=== PATIENT | female | born 1970 | race Caucasian/White ===

== ENCOUNTER 2018-10-09 07:45 | Day surgery (SDC) | payer OTHER ==
[~2018-10-09] VITALS: Ht 154.9 cm; Wt 76.1 kg
[~2018-10-09 07:45] MED LIST: ALBU8.5H5 INH; CALC200T3 PO; DOCU100T3 PO; HYDROCHLOROTH12.5 MG PO; LEVO137T2 PO; LEVO50TA5 PO; OXYC5TAB3 PO
[2018-10-09] MEDS ORDERED: LACTATED RINGERS 1,000 ML IV SCH (08:04)
[2018-10-09] MEDS ORDERED: LEVO100T5 PO (08:16)
[2018-10-09] MEDS ORDERED: CHLOROTHALIDONE PO (08:16)
[2018-10-09] MEDS ORDERED: METF500T17 PO (08:16)
[2018-10-09] MEDS ORDERED: MAGN400T36 PO (08:16)
[2018-10-09] MEDS ORDERED: VERA120T5 PO (08:16)
[2018-10-09] MEDS ORDERED: VITAMIN D3 PO (08:16)
[2018-10-09] MEDS ORDERED: ACETAMINOPHEN 500 MG TABLET PO ONE (08:30)
[2018-10-09] MEDS ORDERED: PLEASE ENTER HEIGHT AND WEIGHT MC SCH (08:30)
[2018-10-09] MEDS ORDERED: GABAPENTIN 300 MG CAPSULE PO ONE (08:30)
[2018-10-09 08:42] VITALS: BP 118/80
[2018-10-09] MEDS ORDERED: PROCHLORPERAZINE 5 MG/ML, 2ML IV PRN (09:00)
[2018-10-09] MEDS ORDERED: DIPHENHYDRAMINE 50 MG/ML, 1ML IVPush PRN (09:00)
[2018-10-09] MEDS ORDERED: MEPERIDINE/PF 25MG/0.5ML IVPush PRN (09:00)
[2018-10-09] MEDS ORDERED: OXYcodone 5 MG/5 ML ORAL.SOL UDC PO PRN (09:00)
[2018-10-09] MEDS ORDERED: HALOPERIDOL 5 MG/ML IV PRN (09:00)
[2018-10-09] MEDS ORDERED: hydrALAzine 20 MG/ML, 1ML IV PRN (09:00)
[2018-10-09] MEDS ORDERED: LABETALOL 5MG/ML, 20ML IV PRN (09:00)
[2018-10-09] MEDS ORDERED: HYDROmorphone 2 MG/ML, 1ML IVPush PRN (09:00)
[2018-10-09] MEDS ORDERED: FENTANYL PF 100 MCG/2ML IV PRN (09:00)
[2018-10-09] MEDS ORDERED: ALBUTEROL SULFATE 2.5 MG/3 ML NPPB PRN (09:00)
[2018-10-09] MEDS ORDERED: METOPROLOL 1 MG/ML, 5ML IV PRN (09:00)
[2018-10-09] MEDS ORDERED: PROMETHAZINE 25 MG/ML, 1ML IV PRN (09:00)
[2018-10-09] MEDS ORDERED: MIDAZOLAM 1 MG/ML, 2ML ONE (09:07)
[2018-10-09] MEDS ORDERED: FENTANYL PF 250 MCG/5ML ONE (09:08)
[2018-10-09 09:11] LABS: ALANINE AMINOTRANSFERASE 63 U/L (12-78); ALBUMIN 4.3 g/dL (3.4-5.0); ANION GAP 8 mmol/L (5-15); CALCIUM 9.2 mg/dL (8.5-10.1); CHLORIDE 98 mmol/L (98-107); CREATININE 0.81 mg/dL (0.55-1.02)
[2018-10-09 09:14] LABS: ALKALINE PHOSPHATASE 73 U/L (45-117); BILIRUBIN,TOTAL 0.9 mg/dL (0.2-1.0); TOTAL PROTEIN 8.5 g/dL (6.4-8.2)
[2018-10-10] MEDS ORDERED: CARV6.2512 PO (11:09)
[2018-10-17] MEDS ORDERED: CARV6.252 PO (15:27)
[2018-10-17] MEDS ORDERED: CHOL2000 PO (16:08)
[2018-10-17] MEDS ORDERED: MAGN400C PO (16:08)
== END 2018-10-09 10:18 | disposition home or self-care (01) ==
LOC: OUT 07:45
PROVIDERS: ATTEND Obstetrics & Gynecology Gynecology
DX: N83.201 Unspecified ovarian cyst, right side (principal); Z53.8 Procedure and treatment not carried out for other reasons; E89.0 Postprocedural hypothyroidism; J45.909 Unspecified asthma, uncomplicated; F32.9 Major depressive disorder, single episode, unspecified; I10 Essential (primary) hypertension; E78.00 Pure hypercholesterolemia, unspecified; Z79.890 Hormone replacement therapy; Z79.84 Long term (current) use of oral hypoglycemic drugs; Z79.899 Other long term (current) drug therapy; Z90.710 Acquired absence of both cervix and uterus; Z90.49 Acquired absence of other specified parts of digestive tract; Z83.3 Family history of diabetes mellitus; Z82.49 Family history of ischemic heart disease and other diseases of the circulatory system; Z80.3 Family history of malignant neoplasm of breast
CPT/HCPCS: 36415; 80053; 82962; 93005; J7120; J2250; J3010

== ENCOUNTER 2018-10-09 12:36 | Observation (INO) | payer OTHER ==
[~2018-10-09] VITALS: Ht 154.9 cm; Wt 79.4 kg
[~2018-10-09 12:36] MED LIST changes: +CHLOROTHALIDONE PO; +LEVO100T5 PO; +MAGN400T36 PO; +METF500T17 PO; +VERA120T5 PO; +VITAMIN D3 PO
[2018-10-09 13:50] VITALS: BP 124/84
[2018-10-09] MEDS: SODIUM CHLORIDE 0.9% 1,000 ML IV SCH (14:32)
[2018-10-09] MEDS ORDERED: POTASSIUM CHLORIDE 20 MEQ TAB.ER.PRT PO ONE (15:00)
[2018-10-09] MEDS ORDERED: TEMPLATE NON-FORMULARY MED. (Albuterol Sulfate** (Albuterol Sulfate Hfa**) 2 PUFF(S)) INH PRN (15:00)
[2018-10-09] MEDS ORDERED: ACETAMINOPHEN 325 MG TABLET PO PRN (15:00)
[2018-10-09] MEDS: ENOXAPARIN 40 MG/0.4 ML SQ SCH (15:00)
[2018-10-09] MEDS: INSULIN LISPRO 100 UNITS/ML, PEN SQ-INSULIN SCH ×2 (16:00→21:14)
[2018-10-09 19:57] VITALS: BP 125/82
[2018-10-09] MEDS: metFORMIN 500 MG TABLET PO SCH (20:37)
[2018-10-09] MEDS: CARVEDILOL 6.25 MG TABLET PO SCH (20:37)
[2018-10-10 01:58] VITALS: BP 118/77
[2018-10-10 05:01] LABS: CHLORIDE 104 mmol/L (98-107)
[2018-10-10 05:07] LABS: HEMOGLOBIN A1C 5.9 % (4.2-6.3)
[2018-10-10 05:11] LABS: ANION GAP 8 mmol/L (5-15); CREATININE 0.75 mg/dL (0.55-1.02)
[2018-10-10] MEDS ORDERED: LEVOTHYROXINE 100 MCG TABLET PO SCH ×2 (06:29→09:00)
[2018-10-10 06:37] VITALS: BP 118/72
[2018-10-10] MEDS: CARVEDILOL 6.25 MG TABLET PO SCH (06:39)
[2018-10-10] MEDS: SODIUM CHLORIDE 0.9% 1,000 ML IV SCH (06:42)
[2018-10-10] MEDS: INSULIN LISPRO 100 UNITS/ML, PEN SQ-INSULIN SCH ×2 (07:00→11:00)
[2018-10-10] MEDS: metFORMIN 500 MG TABLET PO SCH (08:16)
[2018-10-10] MEDS ORDERED: POTASSIUM CHLORIDE 20 MEQ TAB.ER.PRT PO ONE ×3 (09:00→16:30)
[2018-10-10] MEDS ORDERED: CHOLECALCIFEROL 5,000u TAB PO SCH (09:00)
[2018-10-10] MEDS ORDERED: CARV6.2512 PO (11:09)
[2018-10-10 14:39] VITALS: BP 138/88
[2018-10-10] MEDS: ENOXAPARIN 40 MG/0.4 ML SQ SCH (15:00)
[2018-10-17] MEDS ORDERED: CARV6.252 PO (15:27)
[2018-10-17] MEDS ORDERED: MAGN400C PO (16:08)
[2018-10-17] MEDS ORDERED: CHOL2000 PO (16:08)
== END 2018-10-10 16:40 | disposition home or self-care (01) ==
LOC: INTOOBSV 12:40 → 4WST 12:40 → DCLOUNGE 10-10 16:35
PROVIDERS: ADMIT Internal Medicine; ATTEND Internal Medicine
DX: E87.6 Hypokalemia (principal); N83.209 Unspecified ovarian cyst, unspecified side; R06.83 Snoring; E11.9 Type 2 diabetes mellitus without complications; I10 Essential (primary) hypertension; E03.9 Hypothyroidism, unspecified; E66.9 Obesity, unspecified; Z79.84 Long term (current) use of oral hypoglycemic drugs; Z79.899 Other long term (current) drug therapy; Z90.710 Acquired absence of both cervix and uterus
CPT/HCPCS: 36415; 80048; 82962; 83036; 83735; 83880; 84132; 96372; G0378; J1815; J7030

== ENCOUNTER 2018-10-19 10:34 | Day surgery (SDC) | payer OTHER ==
[~2018-10-19] VITALS: Ht 154.9 cm; Wt 78.7 kg
[2018-10-19 11:07] VITALS: BP 169/95
== END 2018-10-19 18:40 | disposition home or self-care (01) ==
LOC: OUT 10:34
PROVIDERS: ATTEND Obstetrics & Gynecology Gynecology
DX: N83.201 Unspecified ovarian cyst, right side (principal); N83.8 Other noninflammatory disorders of ovary, fallopian tube and broad ligament; I10 Essential (primary) hypertension; E78.00 Pure hypercholesterolemia, unspecified; E89.0 Postprocedural hypothyroidism; F32.9 Major depressive disorder, single episode, unspecified; Z79.890 Hormone replacement therapy; Z79.84 Long term (current) use of oral hypoglycemic drugs; Z79.899 Other long term (current) drug therapy; Z90.710 Acquired absence of both cervix and uterus; Z90.49 Acquired absence of other specified parts of digestive tract; Z83.3 Family history of diabetes mellitus; Z82.49 Family history of ischemic heart disease and other diseases of the circulatory system; Z80.3 Family history of malignant neoplasm of breast
CPT/HCPCS: 36415; 58661; 80053; 82962; 85025; 88302; J0171; J0330; J0690; J1100; J1885; J2250; J2405; J2704; J2710; J3010; J3490; J7120; S2900